=== PATIENT | female | born 1945 | race Caucasian/White ===

== ENCOUNTER 2020-10-19 15:31 | Outpatient (CLI) | payer MEDICARE, SELFPAY ==
--- NOTE | ~2020-10-19 | US_ITS ---
EXAMINATION: US carotid duplex BI DATE: 10/19/2020 16:04 INDICATION: Transient cerebral ischemic attack. TECHNIQUE: Grayscale, color Doppler, and pulsed Doppler images of the cervical carotid arteries were obtained. The degree of vessel stenosis is placed in one of the following categories: normal, <50%, 5 0-69%, >=70% but less than near-occlusion, near-occlusion, or total occlusion. Note that percent sten osis relative to normal distal artery lumen diameter is indirectly measured from velocity measurement s as described by Abner, et al. Radiology 2003; [id number]. COMPARISON: None. FINDINGS: RIGHT: The right common carotid artery (CCA) peak systolic velocity (PSV) is 59 cm/s. The right internal car otid artery (ICA) PSV is 72 cm/s. The right ICA end-diastolic velocity (EDV) is 29 cm/s. The right IC A/CCA PSV ratio is 1.2. Grayscale and color Doppler images yield an estimate of <50% diameter reducti on from plaque in the ICA. There is antegrade flow in the right vertebral artery. LEFT: The left CCA PSV is 62 cm/s. The left ICA PSV is 86 cm/s. The left ICA EDV is 28 cm/s. The left ICA/C CA PSV ratio is 1.4. Grayscale and color Doppler images yield an estimate of <50% diameter reduction from plaque in the ICA. There is antegrade flow in the left vertebral artery. IMPRESSION: 1. <50% stenosis in the right internal carotid artery. 2. <50% stenosis in the left internal carotid artery. Reviewed, dictated and finalized at location A. PRODUCTION SUPERVISOR
== END 2020-10-19 15:32 | disposition home or self-care (01) ==
LOC: ANHIMG 15:31
PROVIDERS: PCP Family Medicine; Visit Provider Family Medicine
DX: G45.9 Transient cerebral ischemic attack, unspecified (principal); H53.9 Unspecified visual disturbance; I65.23 Occlusion and stenosis of bilateral carotid arteries
CPT/HCPCS: 93880

== ENCOUNTER → 2021-04-23 02:32 | Outpatient (CLI) | payer MEDICARE, SELFPAY ==
[2021-04-23 20:47] LABS: SARS-CoV-2 RNA PCR Negative
== END ==
PROVIDERS: PCP Family Medicine; Visit Provider Family Medicine
DX: J01.00 Acute maxillary sinusitis, unspecified (principal); Z20.822 Contact with and (suspected) exposure to COVID-19
CPT/HCPCS: C9803; U0003; U0005

== ENCOUNTER → 2021-08-05 15:31 | Outpatient (CLI) | payer MEDICARE, SELFPAY ==
--- NOTE | ~2021-08-05 | XR_ITS ---
XR chest 2V DATE: 08/05/2021 15:43 INDICATION: Chronic productive cough. Ex-smoker. TECHNIQUE: 2 views COMPARISON: 03/22/2009 CT chest high resolution scan FINDINGS: Heart size is within normal range. There is aortic calcification and mild unfolding. No hil ar or mediastinal enlargement is evident. Calcified aortopulmonary window nodes consistent with old g ranulomatous disease. Minimal discoid atelectasis or scarring is noted in the right mid to upper and right mid to lower laurel g. There is mild infiltrate or atelectasis at the left lower lung. Otherwise no pulmonary infiltrate or consolidation, pleural effusion or pulmonary vascular congestion or pneumothorax is noted otherwise. Diffuse osteopenia. Lumbar pedicle screws and rods. IMPRESSION: Mild bilateral infiltrate or atelectasis, greatest in the left lower lung Reviewed, dictated and finalized at location A. A OPERATOR IMPRESSION: Mild bilateral infiltrate or atelectasis, greatest in the left lowe r lung
== END ==
PROVIDERS: PCP Family Medicine; Visit Provider Family Medicine
DX: R05.3 Chronic cough (principal); R04.2 Hemoptysis; R91.8 Other nonspecific abnormal finding of lung field
CPT/HCPCS: 71046

== ENCOUNTER 2021-11-07 01:17 | Day surgery (SDC) | payer MEDICARE, SELFPAY ==
[2021-10-28 16:02] VITALS: BMI 34.9
[2021-11-07 09:26] VITALS: BP 200/101; PULSE 95; RESP 20; TEMP 36.2; O2SAT 96; BMI 35.4
--- NOTE | 2021-11-07 09:28 | WPDGICN ---
Assessment and Plan Assessment and plan (1) Colon cancer screening: Code(s): Z12.11 - Encounter for screening for malignant neoplasm of colon Status: Acute Assessment and Plan: Colonoscopy with possible biopsy or polypectomy or cautery or injection of substances. GI Consult Note Consult date/time: 11/07/21 09:28 HPI: Lou Sevilla is a 76 year old female referred for colonoscopy. She has a family history of colon cancer In her father. Review of Systems Review of Systems: All systems reviewed & are unremarkable except as noted in HPI and below PMFSH Past Medical History Medical History Acute bronchitis Acute infective rhinitis Acute non-recurrent maxillary sinusitis At high risk for falls (04/03/21) BMI 36.0-36.9,adult Chronic cough Chronic pain from chronic low back pain Family history of colon cancer in father Mild intermittent asthma in adult without complication Persistent microalbuminuria associated with type 2 diabetes mellitus Pneumonia (~08/05/21) Polyp of colon Post herpetic neuralgia Protein in urine TIA (transient ischemic attack) UTI (urinary tract infection) Visual changes Family History Family History (Updated 11/10/18 @ 08:20 by DOCTOR UNKNOWN) Grandparent Diabetes mellitus Mother Diabetes mellitus, Onset Age: 82 Sibling Diabetes mellitus Father Patient's father is , Onset Age: 72 Social History Social History Smoking packs per day: 1 Smoking cigarettes per day: 20.0 Years smoked: 3 Smoking pack-years: 3.00 Smoking status: Former smoker Tobacco type: cigarettes Alcohol intake: never Substance use: never Substance use type: does not use Living arrangements: with family Spiritual care concerns: No Meds Home Medications and Allergies Home Medications Medication Instructions Recorded Confirmed Type blood sugar diagnostic #10 each 10/12/19 11/07/21 History cholecalciferol (vitamin D3) 25 1,000 unit PO DAILY 10/12/19 11/07/21 History mcg (1,000 unit) capsule lancets 30 gauge #25 each 10/12/19 11/07/21 History metformin 1,000 mg tablet 1,000 mg PO BID #180 tablet 11/06/20 11/07/21 Rx montelukast 10 mg tablet 10 mg PO DAILY #90 tablet 11/06/20 11/07/21 Rx paroxetine HCl 40 mg tablet 40 mg PO DAILY #90 tablet 11/06/20 11/07/21 Rx blood sugar diagnostic #100 ea 01/01/21 11/07/21 Rx albuterol sulfate 90 mcg/actuation 2 puff INHALATION Q4H PRN #8.5 g 02/05/21 11/07/21 Rx aerosol inhaler meloxicam 15 mg tablet 15 mg PO DAILY PRN #90 tablet 03/18/21 11/07/21 Rx atorvastatin 10 mg tablet 10 mg PO DAILY #90 tablet 04/03/21 11/07/21 Rx ezetimibe 10 mg tablet 10 mg PO DAILY #90 tablet 04/30/21 11/07/21 Rx carvedilol 25 mg tablet 25 mg PO Q12H #180 tablet 06/26/21 11/07/21 Rx irbesartan 300 mg tablet 300 mg PO DAILY #90 tablet 06/26/21 11/07/21 Rx alprazolam 0.25 mg PO HS 07/02/21 11/07/21 History fluticasone furoate 100 1 inh INHALATION DAILY 08/05/21 11/07/21 History mcg-vilanterol 25 mcg/dose inhalation powder fluticasone propionate 50 1 spray NASAL BID #16 ml 08/05/21 11/07/21 Rx mcg/actuation nasal spray,suspension famotidine 20 mg tablet 20 mg PO BID PRN #180 tablet 09/09/21 11/07/21 Rx mupirocin 2 % topical ointment 1 applic TOPICAL BID #15 g 10/01/21 11/07/21 Rx cyanocobalamin (vitamin B-12) 1,000 mcg PO DAILY 10/14/21 11/07/21 History 1,000 mcg tablet ciprofloxacin HCl 500 mg tablet 500 mg PO Q12H #10 tablet 10/17/21 11/07/21 Rx Allergies Allergy/AdvReac Type Severity Reaction Status Date / Time aspirin Allergy Unknown Urticaria Verified 11/07/21 09:25 Penicillins Allergy Unknown Urticaria Verified 11/07/21 09:25 Sulfa (Sulfonamide Allergy Unknown Urticaria Verified 11/07/21 09:25 Antibiotics) Exam Resp: Auscultation: clear to auscultation bilatera
[2021-11-07] MEDS: LACTATED RINGERS 1,000 ML 150 ML IV CONT (09:30)
[2021-11-07 09:34] LABS: Glucose Point of Care 144 mg/dl (65-105)
[2021-11-07 11:27] VITALS: BP 158/81; PULSE 90; RESP 22; O2SAT 98
[2021-11-07 11:37] VITALS: BP 185/87; PULSE 90; RESP 22; O2SAT 100
[2021-11-07 11:47] VITALS: BP 193/103; PULSE 88; RESP 24; O2SAT 99
== END 2021-11-07 12:02 | disposition home or self-care (01) ==
PROVIDERS: PCP Family Medicine; Visit Provider Internal Medicine Gastroenterology
PROC: 0DJD8ZZ Inspection of Lower Intestinal Tract, Via Natural or Artificial Opening Endoscopic (ICD-10-PCS; CPT 45378; principal; 2021-11-07 11:00)
DX: Z12.11 Encounter for screening for malignant neoplasm of colon (principal); K57.30 Diverticulosis of large intestine without perforation or abscess without bleeding; K64.8 Other hemorrhoids; Z80.0 Family history of malignant neoplasm of digestive organs; J45.30 Mild persistent asthma, uncomplicated; E11.9 Type 2 diabetes mellitus without complications; Z86.73 Personal history of transient ischemic attack (TIA), and cerebral infarction without residual deficits; Z87.891 Personal history of nicotine dependence; Z79.84 Long term (current) use of oral hypoglycemic drugs; Z79.51 Long term (current) use of inhaled steroids
CPT/HCPCS: G0105; 82948; J0360; J2704; J7120

== ENCOUNTER → 2021-11-12 11:30 | Outpatient (CLI) | payer MEDICARE, SELFPAY ==
--- NOTE | ~2021-11-12 | XR_ITS ---
EXAMINATION: XR knee LT min 4V DATE: 11/12/2021 11:57 INDICATION: Left knee pain. TECHNIQUE: 4 views of left knee were obtained. COMPARISON: None. FINDINGS: Bone alignment is normal. No fracture. There is severe osteoarthritis of medial compartment , mild osteoarthritis of lateral compartment, and moderate osteoarthritis of patellofemoral compartme nt. There is a small knee joint effusion. IMPRESSION: 1. Severe left knee osteoarthritis. 2. Small left knee joint effusion. Reviewed, dictated and finalized at location A.
--- NOTE | ~2021-11-12 | XR_ITS ---
EXAM: XR knee RT min 4V HISTORY: M25.561 - Pain in right knee,worsening,no trauma COMPARISON: None available FINDINGS: Decreased mineralization. Severe medial joint space narrowing. Tricompartmental osteophyto sis, moderate. Fractured osteophyte or enthesophyte along the superior patella. Small-volume joint fl uid. No fracture or dislocation. No lytic or blastic lesion. IMPRESSION: Tricompartmental right knee osteoarthritis, severe in the medial compartment. Small joint effusion. O steopenia. Reviewed, dictated and finalized at location K. IMPRESSION: Tricompartmental right knee osteoarthritis, severe in the medial compartment. S mall joint effusion. Osteopenia.
== END ==
PROVIDERS: PCP Family Medicine; Visit Provider Family Medicine
DX: M25.562 Pain in left knee (principal); M25.561 Pain in right knee; M17.0 Bilateral primary osteoarthritis of knee; M25.462 Effusion, left knee; M25.461 Effusion, right knee; M85.861 Other specified disorders of bone density and structure, right lower leg
CPT/HCPCS: 73564